=== PATIENT | female | born 1985 | race Caucasian/White ===

== ENCOUNTER 2018-11-05 00:04 | Emergency (ER) | payer OTHER ==
[~2018-11-05] VITALS: Ht 160 cm; Wt 60.0 kg
[2018-11-05 00:36] VITALS: BP 126/65; PULSE 82; RESP 19; Ht 160 cm; Wt 60.0 kg
--- NOTE | 2018-11-05 00:36 | ERD ---
ER Documentation Chief Complaint Chief Complaint Bee sting HPI This is a 33-year-old female with no significant past medical history who was stung by a bee to the left lower leg yesterday. The patient reports that it has been itchy and has had increased redness and swelling with warmth and induration to the site. She has not noticed any purulence. She has not noticed the stinger still in her leg. The patient denies feeling sick recently. The patient denies fever or chills. The patient has had no headache or vision changes. The patient does not endorse neck or back pain. The patient denies lightheadedness or dizziness. The patient has had no chest pain or trouble breathing. The patient denies nausea or vomiting. The patient denies abdominal pain. The patient denies changes to bowel movements or urination. The patient has had no focal deficits. The patient has had no weakness or numbness or tingling to the face or extremities. ROS All systems reviewed and are negative except as per history of present illness. Medications Home Meds Active Scripts Cephalexin* (Keflex*) 500 Mg Capsule, 500 MG PO QID for 7 Days, CAP Prov:BLADE HOLM MD 11/05/18 Sulfamethoxazole/Trimethoprim* (Bactrim Ds* Tablet) 1 Each Tablet, 1 TAB PO BID, #14 TAB Prov:BLADE HOLM MD 11/05/18 Allergies Allergies: Coded Allergies: No Known Allergy (Unverified , 11/05/18) PMhx/Soc Medical and Surgical Hx: pt denies Medical Hx, pt denies Surgical Hx History of Surgery: No Hx Neurological Disorder: No Hx Respiratory Disorders: No Hx Cardiac Disorders: No Hx Psychiatric Problems: No Hx Miscellaneous Medical Probl: No Hx Alcohol Use: No Hx Substance Use: No Hx Tobacco Use: No Smoking Status: Never smoker FmHx Family History: No diabetes Physical Exam Vitals Vital Signs Date Temp Pulse Resp B/P (MAP) Pulse Ox O2 O2 Flow FiO2 Time Delivery Rate 11/05/18 98.6 82 19 126/65 100 00:36 (85) Physical Exam Objective: Vital signs reviewed Const: No apparent distress, well-developed, well-nourished Head: Normocephalic, Atraumatic Eyes: Normal Conjunctiva. ENT: Normal External Ears, Nose and Mouth. Neck: No meningismus. Resp: Symmetric chest wall otero, no audible wheezes Cardio: Regular rate Abd: Non distended Skin: No petechiae or rashes Back: Deferred Ext: No cyanosis, or edema. 4 cm circular area of warmth, erythema and induration at the site of her bee sting. Neur: Awake and alert. No facial droop. Normal strength and sensation. Psych: Normal mood and affect Procedures/MDM MDM The patient's presentation warrants further investigation. Previous medical records, if available, were reviewed. TREATMENT/DISPOSITION The patient presents with redness and warmth and induration around a bee sting that occurred yesterday. Localized reaction is certainly a possibility, though I cannot rule out cellulitis at this time and I do feel that the patient may benefit from treatment in outpatient setting. The risks and benefits of treatment were discussed with the patient. The patient's reaction is localized. I do not see any evidence of anaphylaxis. The patient is well-appearing. I have very low suspicion for a systemic illness. She is afebrile with normal vital signs. The patient is not septic and does not require a full septic work-up. DISCHARGE Upon reevaluation of the patient, symptoms have improved. No emergent diagnoses were identified. At this time, I feel that the patient stable for discharge. The patient was instructed to follow-up with a primary care physician in 1-3 days. The patient will be given strict precautions with which to return to the emergency department. Prescriptions: Keflex, Bactrim The patient's blood pressure was elevated at greater than 120/80 while in the emergency department. The patient was otherwise stable with no evidence of hypertensive urgency or emergency. The patient does not require admission for blood pressure control. I have discussed with the patient the risks of hypertension. I have instructed the patient to return to the ER for any new or worsening symptoms including chest pain, shortness of breath, headache, blurred vision, confusion, nausea, vomiting or LOC. I have advised the patient to follow up with the primary care physician for outpatient monitoring and treatment for hypertension in 1-3 days. Disclaimer: Inadvertent spelling and grammatical errors are likely due to EHR/dictation software use and do not reflect on the overall quality of patient care. Note that the electronic time recorded on this note does not necessarily reflect the actual time of the patient encounter. Departure Diagnosis: Primary Impression: Bee sting reaction Encounter type: initial encounter Injury intent: accidental or unintentional Qualified Codes: T63.441A - Toxic effect of venom of bees, accidental (unintentional), initial encounter Additional Impression: Cellulitis of leg without foot, left Condition: Stable Patient Instructions: Allergic Reaction, Insect (Local), Cellulitis Additional Instructions: Thank you for for coming to [facility] for your care today. Please ask your nurse or provider if you have questions about your care today and do not leave until all your questions have been answered. Please use any medications given as directed and follow-up with your doctor (or the doctor you were referred to) in the next 1-3 days. If you do not have a primary care doctor you may follow up at the [facility] or [facility] (listed below). You may also use motrin and tylenol as needed for fever and/or pain unless instructed otherwise by your provider or nurse. Indications for more urgent follow-up have been discussed, but you may return to the Emergency Department at ANY time for any worrisome or worsening symptoms. If you have abdominal pain, please know that no test or exam you received is perfect and you should follow up within 8 hours for continued pain. If you had any imaging studies today, such as an X-Ray or CT Scan, these studies will be reviewed later by a radiologist. You will be called if there are important findings that were not identified today, so make sure the contact information you provided at registration is correct. If you received any narcotic pain control medicine today, such as Vicodin, Morphine or Dilaudid, your coordination and judgment may be affected for a number of hours. Please do not drive or operate heavy machinery, and you may want someone to assist you at home. If you were given a prescription for narcotic medication, be aware that it is very addictive- use sparingly and only if necessary. PLEASE SEEK FURTHER EVALUATION AND MANAGEMENT AT YOUR DOCTORS OFFICE WITHIN THE NEXT 1-3 DAYS. IT IS YOUR RESPONSIBILITY TO MAKE AN APPOINTMENT FOR FOLOW-UP CARE. IF YOU HAVE A PRIMARY DOCTOR, PLEASE CALL THEIR OFFICE TO SCHEDULE AN APPOINTMENT FOR FOLLOW UP. IF YOU DO NOT HAVE A PRIMARY DOCTOR YOU CAN CALL OUR PHYSICIAN REFERRAL HOTLINE AT IF YOU CAN NOT AFFORD TO SEE A PHYSICIAN YOU CAN CHOSE FROM THE FOLLOWING [facility]: [facility] [address] [facility] [address] [facility] [facility] [address] [facility] [address] [facility] [address] [facility] [facility]. [address] BLADE AVILES MD Nov 05, 2018 00:36
[2018-11-05] MEDS ORDERED: SULF1TAB31 PO (00:37)
[2018-11-05] MEDS ORDERED: CEPH-443 PO (00:37)
== END 2018-11-05 00:56 | disposition home or self-care (01) ==
LOC: E/R 00:04
DX: T63.441A Toxic effect of venom of bees, accidental (unintentional), initial encounter (principal); L03.116 Cellulitis of left lower limb
CPT/HCPCS: 99283